=== PATIENT | male | born 1965 | race Caucasian/White ===

== ENCOUNTER 2017-05-08 22:25 | Emergency (ER) | payer OTHER ==
[~2017-05-08] VITALS: Ht 180.3 cm; Wt 83.1 kg
[~2017-05-08 22:25] MED LIST: NORC7.5T PO; ZOFR4TAB3 SL
[2017-05-08 22:36] VITALS: BP 127/75; PULSE 72; RESP 16; TEMP 98.1; O2SAT 97
--- NOTE | 2017-05-09 00:43 | RADRPT ---
EXAM DATE/TIME: 05/09/2017 00:26 [place] COMPARISON: No previous studies available for comparison. INDICATIONS : Left elbow pain post fall. MEDICAL HISTORY : None. SURGICAL HISTORY : None. ENCOUNTER: Initial ACUITY: 1 day PAIN SCORE: 9/10 LOCATION: Left upper extremity FINDINGS: Comminuted fracture seen anteriorly of the radial head. Main fracture fragments appear to have less t falcon 2 mm of depression. There is an approximately 4.5 mm fracture fragment along the lateral aspect o f the radiocapitellar joint. 8mm ossific structure seen just distal to the medial epicondyle, probably nonacute. CONCLUSION: 1. Comminuted radial head fracture. There is a laterally displaced comminuted fracture fragment but o ther main fracture fragments appear minimally displaced/depressed. 2. Nonacute appearing fracture fragment/ossicle of the medial epicondyle. Taras Andersen MD on May 09, 2017 at 0:40 Board Certified Radiologist. This report was verified electronically.
[2017-05-09] MEDS ORDERED: TETANUS/DIPHTHERIA TOXOID ADULT 0.5 ML VIAL IM ONE (01:00)
[2017-05-09] MEDS ORDERED: oxyCODONE/ACETAMINOPHEN 5 MG/325 MG TAB PO ONE (01:45)
[2017-05-09] MEDS ORDERED: ONDANSETRON ODT 4 MG TAB SL ONE (03:00)
--- NOTE | 2017-05-09 07:16 | PD ---
HPI Chief Complaint: Fall Time Seen by Provider: 00:23 Travel History International Travel<30 days: No Contact w/Intl Traveler<30days: No Traveled to known affect area: No History of Present Illness HPI 51-year-old male presents to the emergency department for complaint of severe left elbow pain. Patient also reports he sustained superficial laceration to his right middle finger. Patient reports he was outside walking in the grass and misstepped off of the pool edge causing him to lose his balance and fall. Patient states he injured his elbow at the time he did not hit his head did not have loss of consciousness did not injure his neck back chest ribs abdomen pelvis or other extremities other than his and a superficial abrasion laceration to the right fourth finger. Patient is right-handed. Patient does not know his tetanus status. Patient states he has significant pain of the left elbow PFSH Past Medical History Narrative Medical Knee surgery; occasional alcohol use; nursing notes reviewed Medical History: Denies Significant Hx Diminished Hearing: No Tetanus Vaccination: Unknown Influenza Vaccination: No Past Surgical History Other Surgery: Yes (knee surgery) Social History Alcohol Use: Yes (SOCIALLY) Tobacco Use: No Substance Use: No Allergies-Medications (Allergen,Severity, Reaction): Coded Allergies: No Known Allergies (Unverified Adverse Reaction, Unknown, 05/09/17) Reported Meds & Prescriptions Reported Meds & Active Scripts Active No Active Prescriptions or Reported Medications Review of Systems Except as stated in HPI: all other systems reviewed are Neg Physical Exam Narrative GENERAL: Well-developed well-nourished male no acute distress no respiratory distress; GCS 15. SKIN: Warm and dry. HEAD: Normocephalic. EYES: No scleral icterus. No injection or drainage. NECK: Supple, trachea midline. No JVD or lymphadenopathy. CARDIOVASCULAR: Regular rate and rhythm without murmurs, gallops, or rubs. RESPIRATORY: Breath sounds equal bilaterally. No accessory muscle use. GASTROINTESTINAL: Abdomen soft, non-tender, nondistended. MUSCULOSKELETAL: No cyanosis, or edema. Left elbow tenderness with decreased range of motion on attempted flexion and extension distal extremities neurovascular tendon intact without deformity approximately left shoulder reveals no tenderness to palpation no open wound to the left upper extremity; right upper extremity attention right middle finger radial aspect less than 1 cm linear flap laceration with bleeding controlled patient demonstrates intact range of motion of the digit has superficial flap laceration to the dorsum of the right fourth finger. Thumb opposition intact. Capillary refill brisk and less than 2 seconds per digit bilateral radial and ulnar pulses are 2+ to palpation. BACK: Nontender without obvious deformity. No CVA tenderness. Data Data Last Documented VS Vital Signs Date Time Temp Pulse Resp B/P (MAP) Pulse Ox O2 Delivery O2 Flow Rate FiO2 05/09/17 00:29 Room Air 05/08/17 22:36 98.1 72 16 127/75 (92) 97 Orders Orders Elbow, Complete (4 Vws) (05/09/17 ) Splint Or Brace Apply/Monitor (05/09/17 00:53) Tetanus/Diphtheria Tox Adult (Tetanus/Di (05/09/17 01:00) Oxycodone-Acetamin 5-325 Mg (Percocet (05/09/17 01:45) Ondansetron Odt (Zofran Odt) (05/09/17 03:00) MDM Medical Decision Making Medical Screen Exam Complete: Yes Emergency Medical Condition: Yes Medical Record Reviewed: Yes Interpretation(s) Last Impressions Elbow X-Ray 05/09/17 0000 Signed Impressions: Service Date/Time: Tuesday, May 09, 2017 00:26 - CONCLUSION: 1. Comminuted radial head fracture. There is a laterally displaced comminuted fracture fragment but other main fracture fragments appear minimally displaced/ depressed. 2. Nonacute appearing fracture fragment/ossicle of the medial epicondyle. Taras Andersen MD Vital Signs Date Time Temp Pulse Resp B/P (MAP) Pulse Ox O2 Delivery O2 Flow Rate FiO2 05/09/17 00:29 Room Air 05/08/17 22:36 98.1 72 16 127/75 (92) 97 Differential Diagnosis Elbow contusion sprain strain subluxation fracture finger laceration Narrative Course Imaging studies ordered Patient with radial head fracture long-arm splint to the left upper extremity ordered and wound sites cleansed to the right hand with Dermabond closure to the right third finger and right fourth finger Patient's case discussed with his orthopedist Dr. Potts is to be seen this week in the office Physician Communication Physician Communication discussed with Dr Potts Diagnosis Primary Impression: Elbow fracture, left Additional Impression: Finger laceration Referrals: Zach Potts MD call for appointment Patient Instructions: General Instructions Departure Forms: Tests/Procedures Additional Instructions: Wear sling Follow-up with orthopedist Take pain medication as prescribed Use ice intermittently to elbow to decrease soft tissue swelling Keep wound site of the right hand clean and dry Return to the emergency department for any concerns or change in condition Scripts No Active Prescriptions or Reported Meds Disposition: 01 DISCHARGE HOME Condition: Stable Maria C Gonzalez MD May 09, 2017 07:16
== END 2017-05-09 02:30 | disposition home or self-care (01) ==
LOC: PHED 22:25
DX: S52.122A Displaced fracture of head of left radius, initial encounter for closed fracture (principal); S61.212A Laceration without foreign body of right middle finger without damage to nail, initial encounter; S61.214A Laceration without foreign body of right ring finger without damage to nail, initial encounter; W01.0XXA Fall on same level from slipping, tripping and stumbling without subsequent striking against object, initial encounter; Y92.34 Swimming pool (public) as the place of occurrence of the external cause; Z23 Encounter for immunization
CPT/HCPCS: 12001; 29105; 73080; 90471